=== PATIENT | male | born 1980 | race Caucasian/White ===

== ENCOUNTER → 2022-03-22 | Emergency (ER) | payer MEDICARE ==
[~2022-03-22] MED LIST: ASPIR-LOW81 MG PO
[2022-03-23 00:37] LABS: HEMOGLOBIN 15.5 gm/dl (14.0-17.5); RED BLOOD COUNT 5.06 M/UL (4.20-5.50); WHITE BLOOD COUNT 9.3 K/UL (4.5-11.0)
[2022-03-23 01:01] LABS: BUN/CREATININE RATIO 18 (0-10)
== END | disposition left against medical advice (07) ==
LOC: ER1 23:41
PROVIDERS: Student in an Organized Health Care Education/Training Program
DX: I10 Essential (primary) hypertension (principal); R51.9 Headache, unspecified
CPT/HCPCS: 70496; 80053; 82550; 82553; 84484; 85025; 93005; 96365; 96375; 99284; J0780; J1100; J1885; J3475; Q9967